=== PATIENT | female | born 1970 | race Caucasian/White ===

== ENCOUNTER 2020-10-11 17:43 | Emergency (ER) | payer OTHER ==
--- NOTE | 2020-10-11 18:04 | NUR ---
NO SHOW Addendum: 10/11/20 at 1815 by [email or web address] LEFT WITHOUT BEING TRIAGED.
== END 2020-10-11 18:15 | disposition left against medical advice (07) ==
LOC: MED 17:43
DX: Z00.01 Encounter for general adult medical examination with abnormal findings (principal); Z53.21 Procedure and treatment not carried out due to patient leaving prior to being seen by health care provider

== ENCOUNTER 2020-10-11 21:07 | Emergency (ER) | payer OTHER ==
[~2020-10-11] VITALS: Ht 165.1 cm; Wt 63.5 kg
[2020-10-11 21:15] VITALS: BP 122/81
[2020-10-11] MEDS: NACL 0.9% 500 ML IV ONE (21:52)
[2020-10-11] MEDS: KETOROLAC 30 MG/ML VIAL IVP ONE (21:52)
[2020-10-11 22:02] LABS: APPEARANCE,URINE CLEAR (CLEAR); BILIRUBIN,URINE NEGATIVE (NEGATIVE); BLOOD, URINE 3+ (NEGATIVE); COLOR,URINE YELLOW (YELLOW); LEUKOCYTE ESTERASE ,URINE NEGATIVE (NEGATIVE); NITRITE, URINE NEGATIVE (NEGATIVE); UGLUCOSE NEGATIVE (NEGATIVE)
[2020-10-11 22:17] LABS: WBC,URINE 0-5 /HPF (0-5)
[2020-10-11 23:26] VITALS: BP 122/81
== END 2020-10-11 23:26 | disposition home or self-care (01) ==
LOC: MED 21:07
DX: R31.9 Hematuria, unspecified (principal); R10.2 Pelvic and perineal pain; R03.0 Elevated blood-pressure reading, without diagnosis of hypertension
CPT/HCPCS: 72131; 74176; 81001; 96361; 96374; 99285; J1885